=== PATIENT | male | born 1995 | race Caucasian/White ===

== ENCOUNTER 2017-12-10 01:08 | Emergency (ER) | payer OTHER ==
[~2017-12-10] VITALS: Ht 175.3 cm; Wt 81.2 kg
[2017-12-10] MEDS ORDERED: PEPCID40 MG PO (07:24)
[2017-12-10] MEDS ORDERED: PHENERGAN25 MG PO (07:24)
== END 2017-12-10 07:38 | disposition home or self-care (01) ==
LOC: ER 01:08
DX: K29.60 Other gastritis without bleeding (principal)